=== PATIENT | female | born 1945 | race Caucasian/White ===

== ENCOUNTER 2017-11-02 08:09 | Outpatient (CLI) | payer BC, MEDICARE | END 2017-11-02 08:10 | disposition home or self-care (01) | LOC: BICMAMMO 08:09 | PROVIDERS: ATTEND Internal Medicine Hematology & Oncology | DX: Z12.31 Encounter for screening mammogram for malignant neoplasm of breast (principal); Z80.3 Family history of malignant neoplasm of breast; Z85.3 Personal history of malignant neoplasm of breast | CPT/HCPCS: 77063; 77067 ==

== ENCOUNTER 2017-11-11 12:57 | Outpatient (CLI) | payer BC, MEDICARE ==
[2017-11-11 13:13] LABS: #Eosinphils 0.1 thou/uL (0.0-0.7); #Lymphocytes 1.7 thou/uL (1.20-3.40); #Monocytes 0.6 thou/uL (0.11-0.59); #Neutrophils 5.3 thou/uL (1.40-6.50); %Basophils 0.3 % (0.0-1.0); %Eosinophils 1.9 % (0.0-10.0); %Lymphocytes 22.1 % (21.0-51.0); %Monocytes 7.4 % (0.0-10.0); %Neutrophils 68.4 % (42.0-75.0); Hemoglobin 13.2 g/dL (12.0-16.0); Mean Corpuscular HGB CONC 35.3 g/dL (32.0-36.0); Mean Corpuscular Hemoglobin 33.8 pg (27.0-31.0); Mean Corpuscular Volume 95.7 fL (78.0-98.0); Mean Platelet Volume 7.8 fL (7.4-10.4); Platelet Count 244 thou/uL (130-400); RBC Distribution Width 11.5 % (11.5-14.5); Red Blood Cell (RBC) Count 3.89 mill/uL (4.20-5.40); White Blood Cell (WBC) Count 7.7 thou/uL (4.8-10.8)
[2017-11-11 13:37] LABS: ALT (SGPT) 26 U/L (8-55); AST (SGOT) 22 U/L (5-34); Albumin 4.3 g/dL (3.4-4.8); Alkaline Phosphatase 61 U/L (40-150); Anion Gap 14 mmol/L (10-20); BUN (Urea Nitrogen) 14 mg/dL (9.8-20.1); Bilirubin, Total 0.9 mg/dL (0.2-1.2); Calc. Creatinine Clearance 0 mL/min (70-130); Calcium 9.7 mg/dL (7.8-10.44); Carbon Dioxide 25 mmol/L (23-31); Chloride 103 mmol/L (98-107); Estimated GFR-MDRD 75; Globulin 2.3 g/dL (2.4-3.5); Glucose 142 mg/dL (83-110); Potassium 3.9 mmol/L (3.5-5.1); Protein, Total 6.6 g/dL (6.0-8.3); Sodium 138 mmol/L (136-145)
--- NOTE | 2017-11-13 23:17 | EKG ---
Test Reason : Blood Pressure : / mmHG Vent. Rate : 077 BPM Atrial Rate : 077 BPM P-R Int : 182 ms QRS Dur : 086 ms QT Int : 392 ms P-R-T Axes : 032 022 030 degrees QTc Int : 443 ms Sinus rhythm with sinus arrhythmia with occasional Premature ventricular complexes Otherwise normal ECG When compared with ECG of 25-SEP-2001 16:48, Premature ventricular complexes are now Present Confirmed by Benita MEJIA ([id number]) on 11/13/2017 11:17:50 PM Referred By: ROHAN Confirmed By:Benita MEJIA
== END 2017-11-11 12:58 | disposition home or self-care (01) ==
LOC: LABBT 12:57
PROVIDERS: ATTEND Specialist
DX: Z01.818 Encounter for other preprocedural examination (principal); C43.62 Malignant melanoma of left upper limb, including shoulder
CPT/HCPCS: 80053; 85025; 93005; 93010

== ENCOUNTER 2017-11-14 06:14 | Day surgery (SDC) | payer BC, MEDICARE ==
--- NOTE | 2017-11-10 16:01 | HP ---
HISTORY OF PRESENT ILLNESS: Gini Kenney, a 72-year-old female well known to me. I have treated h er breast cancer many years ago. She presents with a left forearm skin lesion, which has been previo usly biopsied years ago and more recently rebiopsy with pathology revealed melanoma in situ. The lef t forearm lesion is 2.5 x 2.3 cm and plan is for wide local excision. We will plan this as an outpat ient in case skin graft is necessary. Plan this under sedation local versus general anesthesia stu nick. ALLERGIES: SULFA. TOBACCO: None. ALCOHOL: None. MEDICATIONS: Hydrochlorothiazide 12.5 mg a day, metoprolol 50 mg twice a day, lisinopril 20 mg twice a day, atorvastatin 40 mg at bedtime, amlodipine besylate 22.5 mg a day. ALLERGIES: SULFA, sunflower seeds. PRIMARY CARE PHYSICIAN: Chance Gilbert MD PAST SURGICAL HISTORY: Partial hysterectomy, breast cancer, left 1999 that I treated, partial mastec rose, radiation therapy, followed by Dr. Lennon on a routine basis. Hiatal hernia repair on vacatio n in [place], laparoscopic repair in 2008, asymptomatic. No reflux symptoms. REVIEW OF SYSTEMS: 10-point noncontributory. PHYSICAL EXAMINATION: VITAL SIGNS: 132/72, 74, 92.1 degrees, 171.12 pounds. HEENT: Unremarkable. LUNGS: Clear to auscultation. CARDIAC: Regular rate and rhythm without murmur or gallop. ABDOMEN: Soft, nontender, no masses. EXTREMITIES: Unremarkable except for left forearm distally. There is 2.5 x 2.3 cm pigmented, slight ly raised nevus. Axilla without lymphadenopathy. ASSESSMENT AND PLAN: Melanoma in situ, left forearm. We will plan wide local excision. She underst ands risks and benefits and consents.
[2017-11-11 12:18] VITALS: BMI 27.6
[2017-11-14] MEDS ORDERED: Lidocaine 2% 10 ML INJ ONE (06:40)
[2017-11-14] MEDS ORDERED: Bupivacaine HCl 0.5%/Epinephrine 1:200,000/PF 30 ml Vial ONE (06:40)
[2017-11-14] MEDS ORDERED: Bacitracin Zinc Ointment 30 gm TUBE ONE (06:40)
[2017-11-14] MEDS ORDERED: Lidocaine 1% w/Epinephrine 1:100K 30 ML VIAL ONE (06:40)
[2017-11-14] MEDS ORDERED: Fentanyl 100 MCG/2 ML VIAL ONE (07:28)
[2017-11-14] MEDS ORDERED: CEFAZOLIN/Water 2 GM/20 ML SYRINGE ONE (07:48)
[2017-11-14] MEDS ORDERED: ePHEDrine/0.9% NaCl/PF SYRINGE 50 mg/10 ml ONE (09:15)
[2017-11-14] MEDS ORDERED: Dexamethasone 20 MG/5 ML VIAL ONE (09:15)
[2017-11-14] MEDS ORDERED: Ondansetron HCl/PF 4 MG/2 ML Vial ONE (09:15)
[2017-11-14] MEDS ORDERED: PROPOFOL 200 MG/20 ML VIAL ONE (09:15)
[2017-11-14] MEDS ORDERED: PHENYLEPHRINE-NS 100 MCG/ML 10 ML SYRINGE ONE (09:15)
[2017-11-14] MEDS ORDERED: Lidocaine 1% PF 5 ML VIAL ONE (09:15)
--- NOTE | 2017-11-14 10:19 | OP ---
DATE OF PROCEDURE: 11/14/2017 PREOPERATIVE DIAGNOSIS: Melanoma in situ, left forearm, 2.5 x 2.3 cm, status post punch biopsy. PROCEDURE: 1. Wide local excision melanoma in situ, left forearm dorsally, distal third forearm. Final defect 5 x 3.25 cm, final incision length 5.25 cm. 2. Wide local excision melanoma in situ, left forearm with layered closure. SURGEON: Dr. Nick Goldman ANESTHESIA: General. Local 0.5% Marcaine with epinephrine 30 mL mixed with 2% Xylocaine, 10 mL. PROCEDURE: The patient was taken to the operating room where under general anesthesia, left forearm, left ____ prepared with ChloraPrep, draped in routine fashion. Local anesthetic infiltrated in the skin and subcutaneous tissue about the operative site. Wide excision of the melanoma in situ perform ed left forearm through skin, subcutaneous tissue down to the fascia. Lesion excised, margins marked appropriately submitted to pathology. Subcutaneous tissues undermined and approximated with interru pted simple and yrspvy-ne-obqte sutures of 3-0 Monocryl and continuous suture of 4-0 Prolene used to approximate the skin. DermaGlue applied. The patient tolerated the procedure well.
== END 2017-11-14 10:31 | disposition home or self-care (01) ==
LOC: SDC 06:14
PROVIDERS: ATTEND Specialist
PROC: 0HBEXZZ Excision of Left Lower Arm Skin, External Approach (ICD-10-PCS; principal; 2017-11-14)
PROC: 0JQH0ZZ Repair Left Lower Arm Subcutaneous Tissue and Fascia, Open Approach (ICD-10-PCS; principal; 2017-11-14)
DX: D03.62 Melanoma in situ of left upper limb, including shoulder (principal); Z88.2 Allergy status to sulfonamides; Z79.899 Other long term (current) drug therapy; Z79.82 Long term (current) use of aspirin
CPT/HCPCS: 88305; J0670; J1100; J2001; J2405; J2704; J3010

== ENCOUNTER 2018-12-12 10:10 | Outpatient (CLI) | payer BC, MEDICARE ==
--- NOTE | 2018-12-12 11:52 | MMO ---
Bilateral MAMMO Bilat Screen [facility]. CLINICAL HISTORY: Patient is 73 years old and is seen for screening. The patient has no family history of breast cancer. The patient has a history of malignant (generic) in the left breast at age 54. The patient has a history of left Ultrasound Guided Core Biopsy in October, - benign and left Lumpectomy in September, - malignant. VIEWS: The views performed were: bilateral craniocaudal with tomosynthesis and bilateral mediolateral oblique with tomosynthesis. FILMS COMPARED: The present examination has been compared to prior imaging studies performed at [facility] on 10/23/2014, 10/27/2015, 10/27/2016 and 11/02/2017. MAMMOGRAM FINDINGS: The breasts are almost entirely fat. There are stable post operative changes seen in the left breast. There are no suspicious masses, suspicious calcifications, or new areas of architectural distortion. IMPRESSION: THERE IS NO MAMMOGRAPHIC EVIDENCE OF MALIGNANCY. A ROUTINE FOLLOW-UP MAMMOGRAM IN 1 YEAR IS RECOMMENDED. THE RESULTS OF THIS EXAM WERE SENT TO THE PATIENT. ACR BI-RADS Category 2 - Benign finding MAMMOGRAPHY NOTE: 1. A negative mammogram report should not delay a biopsy if a dominant of clinically suspicious mass is present. 2. Approximately 10% to 15% of breast cancers are not detected by mammography. 3. Adenosis and dense breasts may obscure an underlying neoplasm. Reported by: DANIEL MORTON MD Electonically Signed: [id number]
== END 2018-12-12 10:11 | disposition home or self-care (01) ==
LOC: BICMAMMO 10:10
PROVIDERS: ATTEND Family Medicine
DX: Z12.31 Encounter for screening mammogram for malignant neoplasm of breast (principal); Z85.3 Personal history of malignant neoplasm of breast; Z98.890 Other specified postprocedural states
CPT/HCPCS: 77063; 77067

== ENCOUNTER 2020-01-21 08:49 | Outpatient (CLI) | payer MEDICARE ==
--- NOTE | 2020-01-21 09:34 | MMO ---
Bilateral MAMMO Bilat Screen [facility]. CLINICAL HISTORY: Patient is 74 years old and is seen for screening. The patient has the following family history of breast cancer: sister. The patient has a history of malignant (generic) in the left breast at age 54. The patient has a history of left Ultrasound Guided Core Biopsy in October, - benign and left Lumpectomy in September, - malignant. VIEWS: The views performed were: bilateral craniocaudal with tomosynthesis and bilateral mediolateral oblique with tomosynthesis. FILMS COMPARED: The present examination has been compared to prior imaging studies performed at [facility] on 10/27/2015, 10/27/2016, 11/02/2017 and 12/12/2018. This study has been interpreted with the assistance of computer-aided detection. MAMMOGRAM FINDINGS: There are scattered fibroglandular densities. There are benign appearing calcifications seen in both breasts. Post op changes left breast are stable. There are no suspicious masses, suspicious calcifications, or new areas of architectural distortion. IMPRESSION: THERE IS NO MAMMOGRAPHIC EVIDENCE OF MALIGNANCY. A ROUTINE FOLLOW-UP MAMMOGRAM IN 1 YEAR IS RECOMMENDED. THE RESULTS OF THIS EXAM WERE SENT TO THE PATIENT. ACR BI-RADS Category 2 - Benign finding MAMMOGRAPHY NOTE: 1. A negative mammogram report should not delay a biopsy if a dominant of clinically suspicious mass is present. 2. Approximately 10% to 15% of breast cancers are not detected by mammography. 3. Adenosis and dense breasts may obscure an underlying neoplasm. Reported by: MARYBEL YAO MD Electonically Signed: [id number]
== END 2020-01-21 08:50 | disposition home or self-care (01) ==
LOC: BICMAMMO 08:49
PROVIDERS: ATTEND Family Medicine
DX: Z12.31 Encounter for screening mammogram for malignant neoplasm of breast (principal); Z85.3 Personal history of malignant neoplasm of breast; Z80.3 Family history of malignant neoplasm of breast; Z91.89 Other specified personal risk factors, not elsewhere classified; Z98.890 Other specified postprocedural states
CPT/HCPCS: 77063; 77067

== ENCOUNTER 2021-01-22 08:58 | Outpatient (CLI) | payer MEDICARE | END 2021-01-22 08:59 | disposition home or self-care (01) | LOC: BICMAMMO 08:58 | PROVIDERS: ATTEND Family Medicine | DX: Z12.31 Encounter for screening mammogram for malignant neoplasm of breast (principal); Z80.3 Family history of malignant neoplasm of breast; Z85.3 Personal history of malignant neoplasm of breast; Z91.89 Other specified personal risk factors, not elsewhere classified; Z98.890 Other specified postprocedural states | CPT/HCPCS: 77063; 77067 ==

== ENCOUNTER 2025-04-01 11:38 | Outpatient (CLI) | payer OTHER | END 2025-04-01 11:39 | disposition home or self-care (01) | LOC: BICMAMMO 11:38 | PROVIDERS: ATTEND Family Medicine | DX: Z12.31 Encounter for screening mammogram for malignant neoplasm of breast (principal); Z80.3 Family history of malignant neoplasm of breast; Z85.3 Personal history of malignant neoplasm of breast; Z85.820 Personal history of malignant melanoma of skin; Z91.89 Other specified personal risk factors, not elsewhere classified; Z98.890 Other specified postprocedural states | CPT/HCPCS: 77063; 77067 ==